=== PATIENT | male | born 1985 | race Two or more races ===

== ENCOUNTER 2023-08-14 03:31 | Emergency (ER) | payer SELFPAY ==
[2023-08-14] MEDS: Albuterol/Ipratropium 3.0-0.5 MG/3 ML Neb Soln NEB ONE (04:13)
== END 2023-08-14 04:33 | disposition home or self-care (01) ==
LOC: MERGE 03:31 → JP.ED 03:31
DX: J10.1 Influenza due to other identified influenza virus with other respiratory manifestations (principal)
CPT/HCPCS: 94640; 99284; J7620